=== PATIENT | female | born 1960 | race Asian ===

== ENCOUNTER 2017-03-14 08:43 | Emergency (ER) | payer BC ==
[2017-03-14 09:14] LABS: BASOPHIL % 0.2 % (0-2); PLATELET COUNT 181 x10^3mcL (130-400)
[2017-03-14 09:25] LABS: RED CELL DISTRIBUTION WIDTH 15.5 % (11.5-14.5)
[2017-03-14 09:39] LABS: ALKALINE PHOSPHATASE 61 U/L (46-116); ALT/SGPT 26 U/L (14-59); AST/SGOT 23 U/L (15-37); BILIRUBIN TOTAL 0.62 mg/dL (0.20-1.00); CALCIUM 8.5 mg/dL (8.5-10.1); CARBON DIOXIDE 21.6 mmol/L (21-32); CHLORIDE SERUM 106 mmol/L (98-107); CREATININE SERUM 0.9 mg/dL (0.6-1.0); GFR1 > 60 mL/min; GLUCOSE SERUM 115 mg/dL (74-106); SODIUM SERUM 138 mmol/L (136-145); TOTAL PROTEIN, SERUM 6.9 g/dL (6.4-8.2)
[2017-03-14 09:41] LABS: ALBUMIN 3.1 g/dL (3.4-5.0); POTASSIUM SERUM 2.8 mmol/L (3.5-5.1)
[2017-03-14 11:09] LABS: microscopic required? YES; urine erythrocyte 2+ (NEGATIVE)
[2017-03-14 13:37] VITALS: BP 98/57
== END 2017-03-14 13:37 | disposition home or self-care (01) ==
LOC: ED 08:43
PROVIDERS: Emergency Medicine
PROC: 3E033NZ Introduction of Analgesics, Hypnotics, Sedatives into Peripheral Vein, Percutaneous Approach (ICD-10-PCS; principal; 2017-03-14)
PROC: 3E033GC Introduction of Other Therapeutic Substance into Peripheral Vein, Percutaneous Approach (ICD-10-PCS; 2017-03-14)
PROC: BW28ZZZ Computerized Tomography (CT Scan) of Head (ICD-10-PCS; 2017-03-14)
DX: K52.9 Noninfective gastroenteritis and colitis, unspecified (principal); E87.6 Hypokalemia; E86.0 Dehydration; R11.2 Nausea with vomiting, unspecified; R19.7 Diarrhea, unspecified; Z86.73 Personal history of transient ischemic attack (TIA), and cerebral infarction without residual deficits
CPT/HCPCS: J2270; J3475; J7040

== ENCOUNTER 2017-03-14 22:52 | Emergency (ER) | payer BC ==
[2017-03-15 03:55] VITALS: BP 84/49
== END 2017-03-15 03:55 | disposition home or self-care (01) ==
LOC: ED 22:52
DX: J06.9 Acute upper respiratory infection, unspecified (principal); M79.605 Pain in left leg; M79.602 Pain in left arm; Z86.73 Personal history of transient ischemic attack (TIA), and cerebral infarction without residual deficits